=== PATIENT | female | born 1995 | race Caucasian/White ===

== ENCOUNTER → 2025-06-11 | Outpatient (CLI) | payer OTHER ==
[2025-06-11 14:44] LABS: PLATELET COUNT, AUTOMATED 327 10^3/uL (150-450)
[2025-06-11 14:59] LABS: GLUCOSE CHALLENGE TEST 1 HOUR 122 MG/DL (LESS THAN 140)
[2025-06-11 15:22] LABS: Trichomonas vaginalis (AMP) NOT DETECTED (NEGATIVE)
[2025-06-11 15:45] LABS: GC DNA AMPLIFICATION NEGATIVE (NEGATIVE)
[2025-06-11 15:49] LABS: HIV 1&2 SCREEN NEGATIVE (NEGATIVE)
[2025-06-11 15:57] LABS: HEPATITIS C VIRUS ABY INDEX < 0.02 INDEX (<0.8)
== END ==
LOC: M PLALAB 09:10
PROVIDERS: ATTEND Obstetrics & Gynecology
DX: Z34.93 Encounter for supervision of normal pregnancy, unspecified, third trimester (principal)